=== PATIENT | female | born 1990 | race African-American/Black ===

== ENCOUNTER 2016-10-18 07:58 | Day surgery (SDC) | payer OTHER ==
--- NOTE | 2016-10-17 09:22 | HISTORY AND PHYSICAL ---
ADMITTED: 10/18/2016 HISTORY OF PRESENT ILLNESS: The patient is a 26-year-old female with a chief complaint of a painful right ankle. She reports the ankle pops and swells. She states when she walks it feels very unstable. It has progressed significantly. 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 MEDICAL/SURGICAL HISTORY: Past medical history includes a history of elevated cholesterol. No surgical history of note. PRIMARY CARE PROVIDER: Dr. Dawson MEDICATIONS: 1. She does not list medication. ALLERGIES: 1. SHE HAS NO KNOWN DRUG OR FOOD ALLERGIES. 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 FAMILY HISTORY: Diabetes and hypertension. REVIEW OF SYSTEMS: A 10-point review of systems noncontributory to chief complaint. PHYSICAL EXAMINATION: GENERAL: The patient is alert and oriented x3. HEAD AND NECK: PERRLA. Normocephalic. HEART: Regular rate and rhythm. Regular S1 and S2. LUNGS: Clear to auscultation. No wheezing, rhonchi, or rales. ABDOMEN: Soft, nontender, nondistended. No palpable masses. EXTREMITY: Lower extremity vascular, DP and PT pulses are palpable at +2/4. Skin texture and turgor within normal limits. No open lesions or fissures. DERMATOLOGIC: Well hydrated. Subpapillary venous plexus capillary refill within normal limits. NEUROLOGIC: Deep tendon reflex and sensations are intact. There is pain along the anterior lateral aspect of the right ankle. There is a positive anterior drawer sign with 5 mm of anterior displacement. Crepitus within the joint. LAB/IMAGING: X-rays and fluoroscopy revealed a narrowing of the lateral gutter. MRI taken at [facility] revealed a torn anterior talofibular ligament. IMPRESSION: 1. Torn anterior talofibular ligament. 2. Chronic ankle instability. PLAN: The patient has consented for an ankle arthroscopy with debridement as well as a lateral ankle stabilization. There are no contraindications to surgery. Surgery is scheduled on outpatient basis on 10/19/2015 at [facility].
[~2016-10-18] VITALS: Ht 157.5 cm; Wt 81.7 kg
[2016-10-18] MEDS ORDERED: PERCOCET1 TA4 PO (11:22)
[2016-10-18] MEDS ORDERED: ZOFRAN4 MG PO (11:22)
--- NOTE | 2016-10-18 11:22 | Provider's Discharge Care Plan ---
Problem, Goal, Plan Problem List 1. Sprain of other ligament of right ankle, subsequent encounter Goals: Improve function Instructions: Follow up as directed
--- NOTE | 2016-10-18 11:22 | Provider's Discharge Care Plan ---
Problem, Goal, Plan Problem List 1. Sprain of other ligament of right ankle, subsequent encounter Goals: Improve function Instructions: Follow up as directed
--- NOTE | 2016-10-18 13:07 | OPERATIVE REPORT ---
DATE OF SURGERY: 10/18/2016 SURGEON: Jason La DPM PREOPERATIVE DIAGNOSES: 1. Chronic ankle instability 2. Torn anterior talofibular ligament POSTOPERATIVE DIAGNOSES: 1. Chronic ankle instability 2. Torn anterior talofibular ligament PROCEDURES PERFORMED: 1. Ankle arthroscopy with debridement, right ankle. 2. Lateral ankle stabilization with Arthrex internal brace right ankle. HEMOSTASIS: Achieved by pneumatic thigh tourniquet inflated to 300 mmHg pressure. TOURNIQUET TIME: Total tourniquet time 63 minutes. MATERIALS: Used 3-0 and 4-0 Polysorb, 4-0 Surgipro and one Arthrex internal brace kit. INJECTABLES: Injected 20 mL of 0.5% bupivacaine with epinephrine 1:200,000. COMPLICATIONS: None. CONDITION: The patient tolerated anesthesia and procedure well. INDICATIONS: The patient is a pleasant 26-year-old female who has a chronic unstable right ankle. MRI revealed a torn anterior talofibular ligament. She has elected to proceed with surgical intervention. No contraindications at this time. SURGICAL TECHNIQUE: The patient was brought to the operating room and placed on the table in the supine position. General anesthetic was administered, pneumatic tourniquet was then placed above the right knee. The right lower extremity was prepped and draped in normal sterile fashion. An intraoperative pause was carried out for positive identification, proper limb, and consent form verified and confirmed. The Esmarch bandage was then utilized to exsanguinate the limb. The tourniquet was then inflated. Attention was then directed procedure #1. PROCEDURE #1: ANKLE ARTHROSCOPY WITH DEBRIDEMENT: The leg was placed in a leg herman and an Arthrex ankle distractor was placed. A medial portal incision was made medial to the tibialis anterior tendon and the joint was identified with an 18 gauge needle. An 11 blade was then utilized to make a small incision. A mosquito hemostat was used for portal dissection. A blunt trocar was then placed. The camera was then inserted into the medial portal. Upon entry, there was noted hemorrhagic synovitis within the anteromedial and posteromedial aspect. Posterior ligaments were intact. A corresponding lateral portal incision was made initially identified with an 18 gauge needle. A small vertical incision was made. Blunt trocar was then placed. A small shaver was then placed. At this time on the lateral aspect, particularly posteriorly, there was hemorrhagic synovium, which was resected in toto. Remnants of the anterior talofibular ligament were seen and they were resected as well. The articular surface, both on the tibia and fibula, was in excellent position with no evidence of osteochondral lesions. Approximately 3000 mL of lactated Ringer's were placed through the joint. The camera and shaver were removed. The portal incisions were reapproximated with 4-0 Surgipro. Attention was then directed to procedure #2. PROCEDURE #2: LATERAL ANKLE STABILIZATION WITH AN ARTHREX INTERNAL BRACE: At this time, a linear incision was made with a 15 blade on the anterior distal fibula. It was deepened by sharp and blunt dissection. Superficial vessels were ligated as they were encountered. The periosteum was reflected with a [place] elevator. A guidewire was then placed in the distal aspect of the fibula, oriented at 45 degrees towards the upper shoulder and lateral gutter. Visualized under fluoroscopy for proper placement. It was then drilled with a 2.7 drill, tapped with 3.5 and then a SwiveLock was then inserted with FiberTape. Dissection was then carried anteriorly where a bent Hohmann was then placed. The foot was held in neutral position and the torn anterior talofibular ligament was seen and it was repaired with 3-0 Polysorb. At this time, just inferior to the articulating surface of the trochlea, a guidewire was then placed at 45 degrees going from anterolateral to posteromedial towards the medial malleolus. Verified under fluoro for proper placement and drilled 2.7, over-drilled with 3.4 tapped accordingly. Additional SwiveLock with FiberTape was loaded with the foot held in neutral position and the FiberTape was then inserted overlying the repaired anterior talofibular ligament. Placed through a range of motion with the [place] under the FiberTape for proper tension. The area was flushed. Capsule was reapproximated with 3-0 Polysorb in a [id number] fashion and periosteum was reapproximated with 3-0 Polysorb, the subcutaneous with 4-0, and the skin edge reapproximated in running fashion with 4-0 Surgipro. The area was locally anesthetized with the aforementioned local anesthetic. A compressive dressing was applied. The tourniquet was released with reactive hyperemia and good digital perfusion. The patient tolerated anesthesia and procedure well and left the operating room with vital signs stable. While in recovery, instructions of touchdown weightbearing with the aid of a fracture boot to tolerance. There were no problems throughout the case. Prognosis is guarded. She will be discharged home in stable condition.
[2016-10-18 13:57] VITALS: BP 114/56
== END 2016-10-18 14:55 | disposition home or self-care (01) ==
LOC: OR SRH 07:58 → SCU SRH 07:58 → OR SRH 10:00
PROVIDERS: Podiatrist
PROC: 0SBF4ZZ Excision of Right Ankle Joint, Percutaneous Endoscopic Approach (ICD-10-PCS; principal; 2016-10-18 10:00)
PROC: 0MUQ0JZ Supplement Right Ankle Bursa and Ligament with Synthetic Substitute, Open Approach (ICD-10-PCS; principal; 2016-10-18 10:00)
DX: S93.491A Sprain of other ligament of right ankle, initial encounter (principal); M25.371 Other instability, right ankle; M65.871 Other synovitis and tenosynovitis, right ankle and foot
CPT/HCPCS: 29240; 50002; 60001; 70002; 80102; 80144; 80212; 80360; 83420; 83612; 83860; 84038; 84327; 84522; 90074; 90100; 95059; 98428